=== PATIENT | female | born 1965 | race Asian ===

== ENCOUNTER → 2017-05-22 | Outpatient (CLI) | payer OTHER ==
--- NOTE | 2017-05-22 15:25 | RADRPT ---
PROCEDURE: Left knee radiographs. CLINICAL INDICATION: Left knee pain. TECHNIQUE: Four views. Weight bearing. Frontal, lateral, oblique, and patellar view. COMPARISON: No prior studies are available for comparison. FINDINGS: There is no fracture or dislocation. The soft tissues are normal. There are degenerative changes with osteophytes arising from all 3 joint compartment margins. There is medial joint compartment narrowing, subarticular sclerosis, and mild deformity. There is no lytic or blastic lesion. There is no radiopaque foreign body. IMPRESSION: 1. Moderate to severe degenerative changes of the left knee. 2. Otherwise unremarkable study. RPTAT: QQ .Mark Elizabeth MD, MD Date Time Electronically viewed and signed by .Mark Elizabeth MD, MD on 05/22/2017 15:25 .R/
--- NOTE | 2017-05-22 17:41 | HKNOTE ---
DATE OF SERVICE: 05/22/2017 CHIEF COMPLAINT: Left knee pain. HISTORY OF PRESENT ILLNESS: This is a 52-year-old female who is complaining of pain in the left kne e. She states that the pain has been worsening over the last year. She has not had any previous tr eatment. She does not use any assistive devices. She does not take any pain medications. She tamir es any groin or back pain. She states that the pain was mostly on the inside of the knee. She tamir es any locking, catching or instability. PAST MEDICAL HISTORY: None. MEDICATIONS: None. PAST SURGICAL HISTORY: She denies any previous surgeries. SOCIAL HISTORY: Denies tobacco, alcohol or drug use. FAMILY HISTORY: Noncontributory. ALLERGIES: NO KNOWN DRUG ALLERGIES. PHYSICAL EXAMINATION: Gait: Nonantalgic gait, reciprocal gait pattern. Left knee exam neutral ali gnment. Tender over the medial joint line, 0 to 130 degrees range of motion, stable to varus valgus stress, negative Markell, negative anterior drawer, negative posterior drawer, negative Donnie's. Motor strength 5/5, hamstrings, quadriceps, tibialis anterior, gastroc soleus. IMAGING: X-rays, left knee, 3 views of the left knee demonstrate tricompartmental degenerative sandhu ges. There are peripheral osteophytes with subchondral sclerosis. There is narrowing of the medial compartment and patellofemoral joint. IMPRESSION: This is a 52-year-old female with left knee osteoarthritis. PLAN: I discussed treatment options with the patient. I discussed weight loss, low impact aerobic exercises, pain medications, as well as use of assistive device including a cane. We will also requ est authorization for physical therapy of the left knee. If she continues to have pain despite thes e treatments, she will follow up for a left knee steroid injection. Dictated By: FER SHERWOOD/[place] Conf#: [id number] DID#: [id number]
== END | disposition home or self-care (01) ==
LOC: HKI 14:13
PROVIDERS: ATTEND Orthopaedic Surgery Adult Reconstructive Orthopaedic Surgery
DX: M17.12 Unilateral primary osteoarthritis, left knee (principal)
CPT/HCPCS: 73564; Z7500; G0463